=== PATIENT | male | born 1970 | race Caucasian/White ===

== ENCOUNTER → 2016-12-07 | Outpatient (CLI) | payer BC ==
--- NOTE | 2016-12-07 11:12 | KCIC ---
PROCEDURE Complete abdominal ultrasound HISTORY Hepatitis-C. COMPARISON None FINDINGS Pancreatic tail is poorly visualized, but visualized pancreas appears unremarkable Inferior vena cava is patent. The abdominal aorta is ectatic but no focal aneurysm identified. Liver measures 16.7 cm longitudinal. Mild coarseness of liver echogenicity could indicate mild fatty infiltration. Gallbladder is contracted, likely due to recent meal. No obvious gallstones or wall thickening. Common bile duct measures 5.5 mm. Right kidney measures 13.2 cm longitudinal without hydronephrosis. Left kidney measures 13.3 cm longitudinal without hydronephrosis. Spleen is poorly visualized due to bowel gas IMPRESSION 1. Gallbladder is contracted, likely due to recent meal. No definite gallstones. 2. Possible mild fatty infiltration of the liver. Electronically signed by: Lei Santacruz MD (December 07, 2016 11:11:10)
== END | disposition home or self-care (01) ==
LOC: KCIC US 09:36
PROVIDERS: ATTEND Internal Medicine Gastroenterology
DX: B19.20 Unspecified viral hepatitis C without hepatic coma (principal)
CPT/HCPCS: 76700

== ENCOUNTER → 2021-07-10 | Outpatient (CLI) | payer BC, OTHER ==
--- NOTE | 2021-07-10 13:55 | KCIC ---
EXAM: CT CORONARY CALCIUM SCORING. HISTORY: Hyperlipidemia, coronary calcium screening. COMPARISON: None. FINDINGS: Limited noncontrast CT of the chest was performed for coronary calcium scoring. Refer to e worksheets for full detail Coronary calcium scoring is as follows: RCA: 0. LM: 0. LAD: 5.6. LCx: 0. Total: 5.6. The included portions of the chest reveal the following. Bone windows reveal no suspicious lesions. I mages of the upper abdomen reveal no acute abnormality. There are no pathologically enlarged mediastinal lymph nodes. There is no pleural or pericardial effu saima. Calcified granuloma in the right major fissure. IMPRESSION: 1. Coronary calcium score 5.6. Implication: Minimal identifiable plaque. Risk of Coronary Artery Disease: Very unlikely, less than 10%. --- Exposure: One or more of the following individualized dose reduction techniques were utilized for thi s examination: 1. Automated exposure control 2. Adjustment of the mA and/or kV according to patient size 3. Use of iterative reconstruction technique. Electronically signed by: Bandar Hackett MD (07/10/2021 1:53 PM) [facility]
== END ==
LOC: KCIC CT 12:18
PROVIDERS: ATTEND Family Medicine
DX: Z13.6 Encounter for screening for cardiovascular disorders (principal); J84.10 Pulmonary fibrosis, unspecified
CPT/HCPCS: 75571